=== PATIENT | male | born 1945 | race Caucasian/White ===

== ENCOUNTER 2023-10-04 07:08 | Outpatient (CLI) | payer MEDICARE, OTHER, SELFPAY ==
--- NOTE | 2023-10-04 08:36 | P.ANES_ITS ---
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
--- NOTE | 2023-10-04 09:03 | W.ANESCHARGE ---
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
== END 2023-10-04 07:09 | disposition home or self-care (01) ==
LOC: OP CLINIC 07:10
PROVIDERS: PCP Family Medicine; Visit Provider Internal Medicine Gastroenterology
DX: Z12.11 Encounter for screening for malignant neoplasm of colon (principal); K63.5 Polyp of colon; K57.30 Diverticulosis of large intestine without perforation or abscess without bleeding
CPT/HCPCS: 00811; 45385; 88305; 99100; J2704; J3490

== ENCOUNTER 2024-01-20 17:21 | Emergency (ER) | payer MEDICARE, OTHER, SELFPAY ==
--- NOTE | 2024-01-20 17:29 | ED_ITS ---
HPI - General Adult General Date Seen: 01/20/24 Chief complaint: Weakness Stated complaint: Cough, temp, chills, vomit, tired Time Seen by Provider: 01/20/24 17:25 History of Present Illness HPI narrative: Very pleasant 79-year-old gentleman presenting to the ER today with his . He has a past medical history aortic stenosis, type 2 diabetes, hypothyroidism, hyperlipidemia, history of oropharyngeal cancer, colon polyps. He normally receives primary care through the [facility] system. He had lab workup at [facility] about 2 weeks ago. On 01/04 labs showed: Sodium 146, potassium 4.1, chloride 110, bicarb 25, glucose 147, BUN 22, creatinine 1.1 WBC 5.7, hemoglobin 12.6, platelet 188 ALT 12, AST 21, bilirubin 0.6, alk-phos 90, total protein 6.7 Hemoglobin A1c 6.1 TSH was low at 0.21. Free T4 was normal at 1.6 He is generally fairly active tracy. 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 He enjoys golfing and shooting. He has been traveling lately and actually spent 4 days at a dog show last weekend ( 10 days ago). He has been sick for the past 3 or 4 days. He has noted much increased fatigue, poor energy. He has had a bit of a for appetite. He had a couple of episodes of nonbilious nonbloody a missing with 1 happening 2 days ago on Wednesday, and 1 yesterday. Also some loose stools and diarrhea yesterday evening (but formed stools yesterday morning). No bloody or mucousy diarrhea. He has had a temperature up to 100.7 at home and felt chilled. He is not febrile here in triage in the ER. He has also had a cough productive of some yellow sputum. No shortness of breath. No chest pain. Related Data Previous Rx's ?Medication ?Instructions ?Recorded benzonatate 100 mg capsule 100 mg PO TID PRN cough #10 caps 01/20/24 doxycycline monohydrate 100 mg 100 mg PO BID #14 caps 01/20/24 capsule Allergies Allergy/AdvReac Type Severity Reaction Status Date / Time No Known Drug Allergies Allergy Verified 10/04/23 07:30 PFSH PFS Social History Smoking Status: Never smoker Do you use any of these nicotine containing products: None How often do you have a drink containing alcohol: never How often do you have six or more drinks on one occasion: Never AUDIT-C Alcohol total score: 0 Non-prescribed substance use: denies use service: No Exam Narrative: Exam Narrative: Constitutional: Appears well-developed and well-nourished. Alert. Conversant. Non toxic. HENT: Head: Atraumatic. Nose: Nose normal. Mouth/Throat: Oral mucosa is clear and moist. no trismus. Pharynx normal. Tonsils symmetric. No tonsillar enlargement, erythema, or exudate. Eyes: Conjunctivae normal. EOM normal. Pupils equal, round, and reactive to light. No scleral icterus. Neck: Normal range of motion. Neck supple. No tracheal deviation present. Cardiovascular: Normal rate, regular rhythm. No gallop. No friction rub. No murmur heard. Symmetric radial artery pulses Pulmonary/Chest: Occasional wet sounding but nonproductive cough. Effort normal. No stridor. No respiratory distress. No wheezes. Left> right basilar rhonchi . No tenderness. Abdominal: Soft. Bowel sounds normal. No distension. No mass. No tenderness. No rebound. No guarding. No CVA tenderness. Musculoskeletal: RUE: Normal range of motion. No tenderness. No deformity LUE: Normal range of motion. No tenderness. No deformity RLE: Normal range of motion. No edema. No tenderness. No deformity LLE: Normal range of motion. No edema. No tenderness. No deformity Neurological: Alert and oriented to person, place, and time. Normal strength. CN II-VII intact. No sensory deficit. GCS eye subscore is 4. GCS verbal subscore is 5. GCS motor subscore is 6. Normal coordination Skin: Skin is warm and dry. No rash noted. No pallor. Normal capillary refill. Psychiatric: Normal mood. Normal affect. Const: Vital Signs, click to edit/add: Vital Signs - 24 hr 01/20/24 17:30 Temperature 98.4 F Pulse Rate [Pulse Oximeter] 87 Respiratory Rate 18 Blood Pressure [Ri ght Upper Arm] 158/95 H Pulse Oximetry 95 Oxygen Delivery Me thod Room Air Course Vital Signs Vital signs: Initial Vital Signs Temperature 98.4 F 01/20/24 17:30 Temperature Source Temporal Artery Scan 01/20/24 17:30 Pulse Rate 87 01/20/24 17:30 Pulse Rhythm Regular 01/20/24 17:30 Respiratory Rate 18 01/20/24 17:30 Blood Pressure 158/95 H 01/20/24 17:30 Blood Pressure Mean 116 H 01/20/24 17:30 Blood Pressure Position Sitting 01/20/24 17:30 Pulse Oximetry 95 01/20/24 17:30 Oxygen Delivery Method Room Air 01/20/24 17:30 Vital Signs Temperature 98.4 F 01/20/24 17:30 Pulse Rate 87 01/20/24 17:30 Respiratory Rate 18 01/20/24 17:30 Blood Pressure 158/95 H 01/20/24 17:30 Pulse Oximetry 95 01/20/24 17:30 Oxygen Delivery Method Room Air 01/20/24 17:30 Temperature 98.4 F 01/20/24 17:30 Pulse Rate 87 01/20/24 17:30 Respiratory Rate 18 01/20/24 17:30 Blood Pressure 158/95 H 01/20/24 17:30 Pulse Oximetry 95 01/20/24 17:30 Oxygen Delivery Method Room Air 01/20/24 17:30 Medications Administered Medications: Discontinued Medications Generic Name Dose Route Start Last Admin Trade Name Freq PRN Reason Stop Dose Admin Sodium Chloride 1,000 mls @ 1,000 mls/hr 01/20/24 18:00 01/20/24 19:00 0.9 % Sodium Chloride 1000 Ml IV 01/20/24 18:59 Infused .Q1H ALFONZO Infusion Medical Decision Making MDM Narrative Medical decision making narrative: This patient presents for evaluation of fatigue, productive cough, fever and chills, low energy level as well as some diarrhea and vomiting. Symptoms ongoing for the past 3 or 4 days at home. Differential is broad. Consider possible routine upper respiratory infection. PCR is negative for coronavirus, influenza, RSV. Patient does have rales in the left lung base more so than in the right lung base and we did obtain chest x-ray which does show a left lower lobe pneumonia there. I suspect this is a community-acquired pneumonia. Will start the patient on doxycycline to treat this. Urinalysis negative for infection. No signs of sepsis, cellulitis, abscess or other cause for fever. No abdominal pain to suggest cholecystitis, appendicitis, colitis, diverticulitis. Would hold off on CT for now. Patient is hemodynamically stable with a normal oxygen saturation and normal pulse rate. Blood pressure slightly hypertensive. Laboratory workup shows mild leukocytosis with a white count of 11.5. BUN slightly elevated at 33. CURB-65 score is 2 . This's put him in a moderate risk category. First dose of doxycycline administered here in the ER. [facility] for 100 mg b.i.d. for 7 days. Also Tessalon for cough. He has had some vomiting and diarrhea the past couple of days but not today. He is mildly dehydrated clinically and does have an elevated BUN consistent with dehydration. IV fluids administered here in the ER.. Close followup with primary care physician is indicated. Return to ED for any worsening especially higher fever, weakness, development of trouble breathing or chest pain, worsening vomiting, confusion, or other worsening. Lab Data Labs: Lab Results 01/20/24 01/20/24 01/20/24 Range/Units 17:38 17:50 18:00 WBC 11.53 H (4.50-11.00) K/uL RBC 4.37 (4.30-5.90) m/uL Hgb 12.4 L (13.5-17.5) gm/dL Hct 38.2 (37.0-53.0) % MCV 87 (80-100) fL MCH 28 (26-34) pg MCHC 33 (32-36) gm/dL RDW Coeff of Neptali 13.9 (11.5-15.5) % Plt Count 190 (140-440) K/uL Neut % (Auto) 82.1 H (42.0-72.0) % Lymph % (Auto) 7.3 L (20-44) % [place] % (Auto) 9.5 (0.0-11.0) % Eos % (Auto) 0.6 (0.0-7.0) % Baso % (Auto) 0.2 (0.0-3.0) % Neut # (Auto) 9.50 H (1.7-7.0) K/uL Lymph # (Auto) 0.80 L (0.90-2.90) K/uL [place] # (Auto) 1.10 H (0.00-0.90) K/UL Eos # (Auto) 0.10 (0.00-0.50) K/uL Baso # (Auto) 0.00 (0.00-0.30) K/uL Abs Immat Gran (auto) 0.00 (0.00-0.30) K/uL Imm/Tot Granulo (auto) 0.3 % Sodium 138 (135-149) mmol/L Potassium 3.9 (3.6-5.1) mmol/L Chloride 106 (96-114) mmol/L Carbon Dioxide 22 (20-32) mmol/L Anion Gap 10 (7-15) mEq/L BUN 33 H (7-30) mg/dL Creatinine 1.2 (0.5-1.5) mg/dL Estimated Creat Clear 49.10 Estimated GFR 61 ml/min Glucose 99 (60-115) mg/dL Lactate 0.8 (0.5-1.9) mmol/L Calcium 9.3 (8.4-10.6) mg/dL Urine Color Yellow (Yellow) Urine Appearance Clear (Clear) Urine pH 5.5 (5.0-8.5) Ur Specific [place] 1.025 (1.000-1.030) Urine Protein 1+ A (Negative) Urine Glucose (UA) Negative (Negative) Urine Ketones 1+ A (Negative) Urine Blood Trace-lysed A (Negative) Urine Nitrite Negative (Negative) Urine Bilirubin Negative (Negative) Urine Urobilinogen 0.2 (0.2-1.0) Ur Leukocyte Esterase Negative (Negative) Urine RBC 0-2 (0-2) Urine WBC 0-2 (0-5) Ur Squamous Epith Cells Few (None-Few) Urine Bacteria None (None) SARS-CoV-2 (PCR) Negative SARS-CoV-2 (Negative) Influenza Type A (PCR) Negative PCR FLU A (Negative) Influenza Type B (PCR) Negative PCR FLU B (Negative) Imaging Data Chest x-ray: Attestation: I have reviewed the pertinent imaging results. My impression: Retrocardiac infiltrate visible, with a spine sign lateral view. Probably corresponding to a subtle left lower lobe infiltrate hard to see on the AP view Radiologist's impression: IMPRESSION: Airspace opacity in the posterior left lung base suspicious for pneumonia. Discharge Plan Discharge Clinical Impression: Pneumonia, Dehydration Patient Disposition: Home, Self-Care Condition: Stable Instructions: Community Acquired Pneumonia (DC) Additional Instructions: As we discussed, please try to rest for the next few days. Drink plenty of fluids and stay hydrated. You can use Tylenol or ibuprofen if needed for fever. Take the antibiotics twice daily with food. If you have any worsening symptoms or any problems, come back to the ER right away. If you are not completely improved within 72 hours, please recheck with your doctor. Prescriptions: New doxycycline monohydrate 100 mg capsule 100 mg PO BID Qty: 14 0RF benzonatate 100 mg capsule 100 mg PO TID PRN (Reason: cough) Qty: 10 0RF Follow Up/Referrals: Raul Mendoza MD [Primary Care Provider] - Stand Alone Forms: [employer] Info Instructions
[2024-01-20 17:30] VITALS: BP 158/95; PULSE 87; RESP 18; TEMP 36.9; O2SAT 95; BMI 23.6
--- NOTE | 2024-01-20 17:50 | CRLHL7_ITS ---
For Patients: As a result of the Century Cures Act, medical imaging exams and procedure reports are released immediately into your electronic medical record. You may view this report before your referring provider. If you have questions, please contact your health care provider. INDICATION: Cough, fever, left greater than right basilar rales. TECHNIQUE: Chest 2 view. COMPARISON: Chest radiograph 10/02/2021. FINDINGS: Low lung volumes with bibasilar atelectasis. Airspace opacity in the posterior left lung base suspicious for pneumonia. No pleural effusion or pneumothorax. Stable 5 mm nodular density in the left lower lung which may represent a calcified granuloma. Normal heart size and pulmonary vascularity. Degenerative changes of the spine. IMPRESSION: Airspace opacity in the posterior left lung base suspicious for pneumonia. Dictated by Susan Longo MD @ 01/20/2024 6:13:07 PM (Electronically Signed)
[2024-01-20] MEDS: 0.9 % SODIUM CHLORIDE 1000 ml 1,000 ML IV (18:04)
[2024-01-20 18:05] LABS: Lactate* 0.8 mmol/L (0.5-1.9)
[2024-01-20 18:06] LABS: Basophils Percent Auto 0.2 % (0.0-3.0); Eosinophils Percent Auto 0.6 % (0.0-7.0); Hematocrit 38.2 % (37.0-53.0); Hemoglobin* 12.4 gm/dL (13.5-17.5); Immature Granulocytes Pct Auto 0.3 %; Lymphocytes Percent Auto 7.3 % (20-44); Mean Corpuscular HGB Conc 33 gm/dL (32-36); Mean Corpuscular Hemoglobin 28 pg (26-34); Mean Corpuscular Volume 87 fL (80-100); Monocytes Percent Auto 9.5 % (0.0-11.0); Neutrophils Percent Auto 82.1 % (42.0-72.0); Platelet Count* 190 K/uL (140-440); RDW Coefficient of Variation % 13.9 % (11.5-15.5); Red Blood Count 4.37 m/uL (4.30-5.90); White Blood Count* 11.53 K/uL (4.50-11.00)
[2024-01-20 18:07] LABS: Slide Review Reflex No
[2024-01-20 18:23] LABS: Chloride* 106 mmol/L (96-114); Potassium* 3.9 mmol/L (3.6-5.1); Sodium* 138 mmol/L (135-149)
[2024-01-20 18:25] LABS: Creatinine* 1.2 mg/dL (0.5-1.5); Estimated Glomerular Filt Rate 61 ml/min
[2024-01-20 18:26] LABS: Anion Gap 10 mEq/L (7-15); Blood Urea Nitrogen* 33 mg/dL (7-30); Calcium* 9.3 mg/dL (8.4-10.6); Carbon Dioxide* 22 mmol/L (20-32); Glucose* 99 mg/dL (60-115)
[2024-01-20 18:32] LABS: Appearance Urine Clear (Clear); Bilirubin Urine Negative (Negative); Blood Urine Trace-lysed (Negative); Color Urine Yellow (Yellow); Glucose Urine Negative (Negative); Ketones Urine 1+ (Negative); Leukocyte Esterase Urine Negative (Negative); Nitrite Urine Negative (Negative); Protein Urine 1+ (Negative); Specific Gravity Urine 1.025 (1.000-1.030); Urobilinogen Urine 0.2 (0.2-1.0); pH Urine 5.5 (5.0-8.5)
[2024-01-20 18:46] LABS: PCR FLU A Negative PCR FLU A (Negative); PCR FLU B Negative PCR FLU B (Negative); SARS PCR* Negative SARS-CoV-2 (Negative)
[2024-01-20 18:55] LABS: RBC Urine 0-2 (0-2); Squamous Epithelial Cell Urine Few (None-Few); WBC Urine 0-2 (0-5)
[2024-01-20] MEDS: DOXYCYCLINE HYCLATE 100 MG PO (19:14)
== END 2024-01-20 19:18 | disposition home or self-care (01) ==
PROVIDERS: Emergency Provider Emergency Medicine; PCP Family Medicine
DX: J18.9 Pneumonia, unspecified organism (principal); E86.0 Dehydration
CPT/HCPCS: 36415; 71046; 80048; 81001; 83605; 85025; 87631; 99283; 99284; A9270; J7030

== ENCOUNTER 2024-11-28 20:01 | Emergency (ER) | payer MEDICARE, OTHER, SELFPAY ==
--- OUTSIDE RECORDS SUMMARY | 2024-11-28 20:03 | XMS_ITS | Clinical Summary ---
Author Organization [facility] Address [address] [place] [id number] Care Team Providers Care Turf Keeper Name Role Phone Raul Mendoza MD Primary Care Provider [phone] Raffaele Regan Unavailable Unavailab Eloy Castro MD Unavailable [phone] Jordan Rodriguez MD Unavailable [phone] Carly Metzger RN Unavailable Unavailabl e Allergies No known active allergies Medications lutein 20 mg tabletIndications:F amily history of macular degeneration Take 1 tablet by mouth once daily. 0 8 Active acetaminophen (TylenoL) 325 mg cap Take by mouth one time if needed. 0 2 Active atorvastatin (LIPITOR) 80 mg tabletIndications:O ther hyperlipidemia Take 1 Tablet (80 mg) by mouth once daily. 90 Tablet 3 4 Active pantoprazole (PROTONIX) 20 mg tabletIndications:A bdominal pain, epigastric,Chronic GERD Take 1 Tablet (20 mg) by mouth once daily before a meal. Wait until they call for this. 90 Tablet 3 4 Active levothyroxine (SYNTHROID) 112 mcg tabletIndications:A cquired hypothyroidism Take 1 Tablet (112 mcg) by mouth before breakfast. 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 Recommend repeat imaging in 3 years. 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, face and neck 12/09/2022 Radiation-induced polyneuropathy 12/09/2022 Left ventricular failure, unspecified 12/09/2022 Oropharynx cancer 08/26/2021 Cancer Staging:Clinical:Stage II(cT3, cN1, cM0, p16+) - Signed by Nighat Kwok MD on 08/26/2021 Overview (10/09/2021): Poorly differentiated squamous cell carcinoma, p16 positive Uncontrolled type 2 diabetes mellitus with complication, with long-term current use of insulin 04/15/2020 Other hyperlipidemia 07/02/2017 Acquired hypothyroidism 10/23/2015 Acute medial meniscus tear of right knee 013 Articular cartilage disorder right knee 03/09/20 13 Screen for colon cancer 11/28/2008 Overview (11/28/2008): Colonoscopy 11/2008 normal repeat in 10 years Type II or unspecified type diabetes mellitus without mention of complication, not stated as uncontrolled 09/13/2007 Resolved Problems Problem Noted Date Diagnosed Date Resolved Date 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 08/26/2021 Cancer Staging:Clinical:Stage NEGRITA(cT3, cN2, cM0) - Signed by Nighat Kwok MD on 08/26/2021 Pathologic: Unsigned Hyperlipidemia 10/23/2015 07/02/2017 Encounters Date Type Department Care Team Description 11/27/2024 2:15 PM CDT Office Visit [address] [address] Deni Cornejo MD Follow Up 11/27/2024 Travel 09/07/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 Office Visit [facility] [address] [place] [address] Votel, Tarik Jackson MD Concerns (Chest congestion, x 2 days, made him come in, feels fine) 09/06/2024 Travel from Last 3 Months Immunizations Immunization Administration Dates Next Due COVID-19 VACCINE SPIKEVAX (M ODERNA 50MCG/0.5ML) 12YO+ PFS 06/28/2024,06/23/2023 COVID-19 vaccine (Pfizer-Bio NTech 30mcg/0.3mL) PF, MDV 06/26/2021 Influenza, High-dose Inactivated 024,07/14/2019,07/28/2018,2016,05/25/2016,05/01/2015 Influenza, High-dose Quadriv alent Inactivated 05/25/2022,06/18/2021,05/27/2020 Influenza, Inactivated AIIV4 (Age 65+ Years) Preserv Free 06/23/2023 Pneumococcal Poly,23-Valent (Pneumovax) 07/28/2018 Pneumococcal conj 13-Valent (Prevnar 13) 10/23/2016 Tdap 10/23/2016,11/13/2005 Zoster (Shingrix-RZV, recombinant) 02/28/2019,,10/21/2018 Family History Medical History Relation Name Comments Diabetes type II Brother 1 Lee Esophageal cancer Brother 2 Norm Cancer-prostate Father Diabetes Father Heart Disease Father valve replacem ent; of complications of this at 79 Hypertension Mother Other Mother of old age at 99. Tremor Sister Ivette Relation Name Status Comments Brother 1 Lee Alive Brother 2 Norm Alive Father Mother Sister Ivette Alive Son 1 Alive Son 2 Alive Son 3 Alive Son 4 Alive Social History Tobacco Use Types Packs/Day Years Used Date Smoking Tobacco: Former Cigarettes Q uit: 08/31/1987 Smokeless Tobacco: Former Chew Quit: 06/30/2017 Tobacco Cessation:Counseling Given: Yes Comments:smoked years ago (approximately 15 pack year hx) Alcohol Use Standard Drinks/Week Comments Yes 5 (1 standard drink = 0.6 oz pur e alcohol) 5/week; usually whiskey PHQ-2 Answer Date Recorded PHQ-2 TOTAL SCORE 0 06/28/2024 Social Connections Answer Date Recorded Do you often feel lonely or isolated from those around you? 0 06/28/2024 Alcohol Use Answer Date Recorded How often do you have a drink containing alcohol ? 4 06/28/2024 How many drinks containing a lcohol do you have on a typical day when you are drinking? 0 06/28/2024 How often do you have five or more drinks on one occasion? 0 06/28/2024 Financial Resource Strain Answer Date R ecorded Difficulty of Paying Living Expenses 3 06/28/2024 Difficulty of Paying Living Expenses Not on file 06/28/2024 Food Insecurity Answer Date Recorded Do you worry your food will run out before you are able to buy more? 1 06/28/2024 Transportation Needs Answer Date Record ed Does lack of transportation keep you from medica l appointments? 1 06/28/2024 Does lack of transportation keep you from work, meetings or getting things that you need? 1 06/28/2024 Housing Stability Answer Date Recorded What is your housing situation today? 1 06/28/2024 Utilities Answer Date Recorded Do you have trouble paying f or utilities (for example, heat, electricity, water, phone)? 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 MECHANIC Pulse 72 09/07/2024 9:39 AM BICYCLE MECHANIC Temperature 36.4 C (97.5 F) 09/07/2024 9:39 AM BICYCLE MECHANIC Respiratory Rate 12 11/27/2024 2:29 PM CDT Oxygen Saturation 97% 09/07/2024 9:39 AM BICYCLE MECHANIC Inhaled Oxygen Concentration - - Weight 75.9 kg (167 lb 4.8 oz) 09/07/2024 9:39 A M BICYCLE MECHANIC Height 170.2 cm (5' 7) 09/07/2024 9:39 AM BICYCLE MECHANIC Body Mass Index 26.2 09/07/2024 9:39 AM BICYCLE MECHANIC Plan of Treatment Upcoming Encounters Date Type Department Care Team (Late st Contact Info) Description 01/03/2025 9:45 AM CDT Orders Only [facility] [address] [place] [address] Tayo York 01/10/2025 1:10 PM CDT Office Visit [facility] [address] [place] [address] Raul Mendoza MD [address] [place] [address] Health Maintenance Due Date Last Done Comments RSV vaccine for adults or (1 - 1-dose 75+ series) 2018 COVID-19 vaccine series (7 - Pfizer risk season) 2024 06/28/2024, 06/23/2023, 07/07/2022, Additional history exists Depression screening for age 12+ 06/28/2025 06/28/2024, 07/01/2023, 06/25/2023, Additional history exists Medicare Wellness for age 65+ 06/29/2025, 06/23/2023, 07/11/2021, Additional history exists BMI (ht and wt on same day) for age 18+ 09/07/2025 09/07/2024, 06/28/2024, 01/24/2024, Additional history exists Tetanus booster 10/23/2026 10/23/2016, 11/13/2005 Tdap Completed 10/23/2016, 11/13/2005 Pneumococcal series for age 50+ Completed 9, 10/23/2016 Zoster (shingles) series for age 50+ Completed 02/28/2019, 11/10/2018, 10/21/2018 Influenza Vaccine Completed 05/26/2024, , 07/14/2019, Additional history exists Insurance [employer] MEDICARE SUPPLEMENT PLAN MEDICARE PB ONLY MEDICARE PART A HB ONLY MEDICARE PART B HB ONLY Advance Directives * Full Code (Latest Code Status on File) Date Activated Date Inactivated Comments 10/25/2023 1:37 PM 10/25/2023 5:05 PM Question Answer Comments Code Status Discussion: Reviewed Preferences * Full Code Date Activated Date Inactivated Comments 10/25/2023 11:22 AM 10/25/2023 1:37 PM Question Answer Comments Code Status Discussion: Unable to Assess Preferences, Provider to review later Care Teams Turf Keeper Relationship Specialty Start Date End Date Raul Mendoza MD [address] [place] [address] PCP - General 07/15/24 Raffaele Regan [address] [place] [address] General Surgery Surgery - General 04/27/12 Eloy Carroll MD [address] [place] [address] Sports Medicine 04/27/12 Jordan Rodriguez MD [address] [facility] [address] Orthopedics Surgery - Orthopedic 04/05/13 Carly Metzger RN [address] [place] [address] Nurse Navigator - Oncology Registered Nurse 07/30/21
--- OUTSIDE RECORDS SUMMARY | 2024-11-28 20:03 | XMS_ITS | Encounter Summary ---
Author Organization [facility] Address [address] [place] [id number] Care Team Providers Care Bank Advisor Name Role Phone Unavailable Primary Care Provider Unavailabl e Reason for Referral * Outpatient (Routine) - Authorized Specialty Diagnoses / Procedures Referred By Gulshan becerra Referred To Contact Radiation Oncology Jackie Holly M.D. [address] [place] [address] Phone: tel: fax: [facility] Referral ID Status Reason Start Date Expiration Date V isits Requested Visits Authorized [id number] Authorized 11/22/2024 05/24/2026 1 1 * Outpatient (Routine) - Closed Specialty Diagnoses / Procedures Referred By Gulshan becerra Referred To Contact Radiation Oncology Janett Patel APRN, C.N.P., D.N.PStefani [address] [place] [phone] Phone: tel: fax: Jackie Holly M.D. [address] [place] [phone] Phone: tel: fax: Referral ID Status Reason Start Date Expiration Date Visits Re quested Visits Authorized [id number] Closed 05/19/2024 11/18/2025 1 1 Scheduling Instructions After visit with Chantal Reason for Visit * Outpatient (Routine) - Closed Specialty Diagnoses / Procedures Referred By Gulshan becerra Referred To Contact Radiation Oncology Janett Patel APRN C.N.PStefani, D.N.P. [address] [place] [phone] Phone: tel: fax: Jackie Holly M.D. [address] [place] [phone] Phone: tel: fax: Referral ID Status Reason Start Date Expiration Date Visits Re quested Visits Authorized [id number] Closed 05/19/2024 11/18/2025 1 1 Encounter Details Date Type Department Care Team (Latest Contact Info) Description 11/22/2024 2:16 PM CDT - 11/22/2024 2:56 PM CDT Hospital Encounter Department of Radiation Oncology in [place], [place] [address] [place] [phone] Jackie Holly M.D. [address] [place] [phone] Malignant Neoplasm Of Tongue Base (HCC) (Primary Dx) Social History Tobacco Use Types Packs/Day Years Used Date Smoking Tobacco: Former Cigarettes Q uit: 08/31/1987 Smokeless Tobacco: Former Chew Quit: 06/30/2017 Comments:Approximately 15 pa ck/year history. 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 07/07/2022 acetaminophen-co deine (TYLENOL #3) 300-30 mg per tabletIndication s:Prolonged Acute Pain/Traumatic Injury Take 1 tablet by mouth every 6 (six) hours as needed for pain Indications: Prolonged Acute Pain/Traumatic Injury. 20 tablet 08/18/2021 aspirin 81 mg capsule Take 81 mg by mouth daily as needed (Holds if working out due to taking Tylenol.). 03/19/2022 diphenhydramine- lidocaine-antaci d (MAGIC MOUTHWASH) 1:1:1 Apply 15 mL to the mouth or throat every 4 (four) hours as needed for mucositis. 480 mL 09/23/2021 glucos sul [id number]-[id number]-C -Mn (Glucosamine Chondroitin) 550-30-1 mg capsule Take 1 capsule by mouth daily. 12/09/2022 HYDROcodone-acet aminophen (NORCO) 5-325 mg per tablet Take 1 tablet by mouth every 6 (six) hours as needed for severe pain or score 7-10 of 10. 07/16/2023 levothyroxine (SYNTHROID, LEVOTHROID) 125 mcg tablet Take 125 mcg by mouth every morning before breakfast. 06/23/2023 lutein 20 mg tablet Take 1 tablet by mouth daily. 04/08/2018 magnesium oxide 500 mg tablet tablet Take 500 mg by mouth daily as needed (Seldom.). 12/31/2022 oxyCODONE (ROXICODONE) 5 mg immediate release tabletIndication s:Acute Pain Exception Take 1 tablet (5 mg total) by mouth every 4 (four) hours as needed for moderate pain or score 4-6 of 10 or severe pain or score 7-10 of 10 Indication: Acute Pain Exception. 20 tablet 09/29/2021 pantoprazole (PROTONIX) 20 mg EC tablet Take 20 mg by mouth every morning before breakfast. 06/23/2023 pentoxifylline (TRENtal) 400 mg ER tablet Take 400 mg by mouth 3 (three) times a day with meals. 08/09/2021 polyethylene glycol-electroly anna (GoLYTELY) 236-22.74-6.74 -5.86 gram solution Take 4,000 mL by mouth once. 09/27/2023 documented as of this encounter Progress Notes * Jackie Holly M.D. - 11/22/2024 2:30 PM CDT RADIATION ONCOLOGY PHONE FOLLOW-UP NOTE SUBJECTIVE REFERRAL SOURCE Established patient DIAGNOSIS 1. 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 in [facility] to the patient in Patient's Home CHIEF COMPLAINT/REASON FOR VISIT Mr. Vick Pisano is a 79 y.o. 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 He returns for a focused follow-up phone visit. Oncology History Malignant Neoplasm Of Tongue Base (HCC) 06/26/2021 Initial Diagnosis Patient presented to primary care provider with a 2-month history of sore throat and right-sided neck lump with associated unintentional 10 lb weight loss over the past year. 06/26/[address] neck showed a 3.1 x 2.0 cm bulky centrally necrotic mass arising from the right base of tongue with extension into the superior oropharyngeal space. There was moderate bulky prominence of the residual lingual tonsil. Pathologically enlarged right cervical 2 lymph node measured up to 2.2 cm. Additional necrotic lymph node at the right 3 cervical chain measured 1.1 cm. 07/11/2021 Critical Imaging PET/CT demonstrated a 2.4 x 2.2 cm mass in the right tongue base/tonsillar region with increased FDG activity, SUV max 12.5. Larger adjacent enlarged and FDG avid right neck lymph node measuring 4.0 x 3.7 cm, SUV max 11.2. No definitive evidence of distant metastatic disease. 07/17/2021 Biopsy/Pathology Laryngoscopy demonstrated a large, firm mass that appeared to be eminating from the right base of tongue and filled much of the oropharynx. It did appear to extend into the tonsillar fossa. It did not cross midline. It did not involve the epiglottis. Biopsy, right base of tongue: poorly differentiated squamous cell carcinoma, p16 positive. 08/05/2021 Other Medical Oncology consultation with Dr. Nighat Kwok who recommended concurrent chemoradiotherapy. She planned on treatment with weekly paclitaxel with carboplatin for the duration of radiation treatment. The patient will need dental clearance. Consult with speech therapy and swallow study ordered. 08/11/2021 Other ENT consultation with Dr. Basia Lopez and Janett Fucsh CNP who reviewed that the patient has a likely T3/T4 N1 p16 positive squamous cell carcinoma of the right base of tongue. Surgical options were discussed. Primary chemoradiation might be a better option for him for voice and tongue preservation. However, the right level 3 lymph node has increased in size and if this is bulky disease that would strengthen the argument for surgical intervention followed by chemoradiation. 08/18/2021 - 10/03/2021 Radiation Therapy Radiation Therapy Treatment Details (08/18/2021 - 10/03/2021) Site: Right Oropharynx - Base of tongue Technique: IMRT Goal: Curative Planned Treatment Start Date: 08/18/2021 Radiation therapy to the right and left neck completed in 35 fractions to a dose of 7000 cGy. 12/26/2021 Critical Imaging Three month post-treatment PET/CT demonstrated resolution of FDG avid base of tongue mass and rightcervical lymphadenopathy. No residual abnormal uptake with no evidence of locoregional or distant progression. 12/29/[address] Chest with IV contrast no evidence of metastatic disease in the chest CT Neck Soft tissue with IV contrast demonstrated resolution of the mass within the right oropharyngeal mucosa and adenopathy at levels 1 and 2 without any new adenopathy. Postradiation changes of mild asymmetry with soft tissue swelling and edema/inflammation. INTERVAL HISTORY: Since I last saw Mr. Vick Pisano he reports that he is doing well. His only complaint is mild dry mouth. He states that he is active. He has no head and neck complaints. Hedenies change in swallowing, lumps or masses, ear pain, change in weight. He is doing his dental fluoride and care. He sees Dr. Cornejo next week for his ENT visit/exam. OBJECTIVE There were no vitals taken for this phone visit. General: Mr. Vick Pisano sounded well on the phone. DIAGNOSTICS I have reviewed the available imaging, operative and pathology reports as described above and reviewed in the EMR. 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 He will have an exam next week to ensure no evidence of clinical recurrence. We will see him again for a phone visit in 1 year. I congratulated him on his 3 year from treatment anniversary. His questions were answered; he was comfortable with this plan. Mr. Vick Pisano knows to contact us at any point should any questions or concerns arise. EDUCATION: Ready to learn, no apparent learning barriers were identified; learning preferences include listening. Explained diagnosis and treatment plan; patient expressed understanding of the content. I personally spent 12 minutes in care of the patient today. Time includes both non face to face andface to face patient care. Signed by: Jackie Holly M.D. 11/22/2024 2:55 PM CDT Radiation Oncology [facility] [address] [place] [address] documented in this encounter Miscellaneous Notes * Addendum Note - Jackie Holly M.D. - 11/22/2024 2:30 PM CDTEncounter addended by: Jackie Holly M.D. on: 11/22/2024 3:17 PM Actions taken: Flowsheet macro applied, Flowsheet accepted documented in this encounter Plan of Treatment Scheduled Referrals Name Type Priority Associated Diagnoses Order Schedule Radiation Oncology office visit (clinic) Outpatient Referral Routine Once for 1 Occurrences starting 11/22/2024 until 11/22/2024 Radiation Oncology office visit (clinic) Outpatient Referral Routine Expected: (Approximate), Expires: 11/22/2025 documented as of this encounter Visit Diagnoses Diagnosis Malignant Neoplasm Of Tongue Base (HCC)- Primary documented in this encounter
--- OUTSIDE RECORDS SUMMARY | 2024-11-28 20:03 | XMS_ITS | Clinical Summary ---
Author Organization [facility] Address [address] [place] [address] Care Team Providers Care Line Haul Driver Name Role Phone Raul Mendoza MD Primary Care Provider [phone] Source Comments You are receiving this document as you are listed as the primary care provider,follow-up provider, or the patient has been referred to you for consultation.This is in compliance with the Medicare and[facility] EHR Incentive Program,which states Providers who transition their patient to another setting of careor provider of care or refers their patient to another provider of care shouldprovide summary care record for each transition of care or referral. [employer] [facility] Allergies No known active allergies Medications Glucosamine HCl-MSM (GLUCOSAMINE-MS M OR) Take by mouth. 04/14/2013 Active Meloxicam (AKA MOBIC) 15 MG tablet Take 15 mg by mouth daily (every 24 hours). 04/14/2013 Active aspirin EC 81 MG enteric coated tablet Take 81 mg by mouth daily (every 24 hours). 04/14/2013 Active lisinopril (AKA ZESTRIL) 10 MG tablet Take 10 mg by mouth daily (every 24 hours). 04/14/2013 Active atorvastatin (AKA LIPITOR) 10 MG tablet Take 10 mg by mouth daily (every 24 hours). 04/14/2013 Active levothyroxine (AKA SYNTHROID) 100 MCG tablet Take 100 mcg by mouth daily (every 24 hours). 04/14/2013 Active HYDROcodone-romulo taminophen (NORCO) 5-325 MG tablet Take 1-2 tablets by mouth every 4 hours as needed for Pain. 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 Overview (03/17/2017): Chondromalacia, right knee Social History Tobacco Use Types Packs/Day Years Used Date Smoking Tobacco: Former Cigarettes Smokeless Tobacco: Former Chew Alcohol Use Standard Drinks/Week Comments Yes 0 (1 standard drink = 0.6 oz pur e alcohol) 1 drink/day Sex and Gender Information Value Date Recorded Sex Assigned at Not on file Legal Sex Male 4:13 AM CDT Gender Identity Not on file Sexual Orientation Not on file Last Filed Vital Signs Vital Sign Reading Time Taken Comments Blood Pressure - - Pulse - - Temperature - - Respiratory Rate - - Oxygen Saturation - - Inhaled Oxygen Concentration - - Weight 73.3 kg (161 lb 9.6 oz) 10/08/2023 10:52 AM CDT Height 170.5 cm (5' 7.13) 10/08/2023 10:52 AM C DT Body Mass Index 25.21 10/08/2023 10:52 AM CDT Plan of Treatment Health Maintenance Due Date Last Done Comments Medicare Annual Wellness Visit 1945 RSV Vaccine (1 - 1-dose 75+ series) 2018 COVID-19 Vaccine ( season) 2024 06/23/2023, 07/07/2022, 06/26/2021, Additional history exists DTaP/Tdap/Td Vaccine (3 - Tdap) 10/23/2026 10/23/2016, 11/13/2005 Colonoscopy Discontinued 11/28/2008 Pneumococcal Vaccine 50+ Yrs Completed 07/28/2018, 10/23/2016 Zoster/Shingles Vaccine Completed 02/28/2019, 11/10 Influenza Vaccine Completed 05/26/2024, , 05/25/2022, Additional history exists HepA Vaccine Aged Out No longer eligi ble based on patient's age to complete this topic HepB Vaccine Aged Out No longer eligi ble based on patient's age to complete this topic Hib Vaccine Aged Out No longer eligi ble based on patient's age to complete this topic IPV (Polio) Vaccine Aged Out No longe r eligible based on patient's age to complete this topic MCV4 Vaccine Aged Out No longer eligi ble based on patient's age to complete this topic Meningococcal B Vaccine Aged Out No l onger eligible based on patient's age to complete this topic Insurance MEDICARE MEDICARE SUPPLEMENT Care Teams Line Haul Driver Relationship Specialty Start Date End Date Raul Mendoza MD [address] [place] [address] [facility] - General 04/11/13
--- OUTSIDE RECORDS SUMMARY | 2024-11-28 20:03 | XMS_ITS | Clinical Summary ---
Author Organization [facility] Address [address] [place] [address] Care Team Providers Care Lower School Spanish Teacher Name Role Phone Unavailable Primary Care Provider Unavailabl e Source Comments Patient records contain information from all sites at [facility]. For routine questions regarding patient records, call [phone] during business hours, M-F 8:00 AM - 5:00 PM Central Time. Record requests for emergency care only can be directed to [phone] at any time.[facility] Allergies No known active allergies Medications lutein 20 mg tablet Take 1 tablet by mouth daily. 8 Active pentoxifylline (TRENtal) 400 mg ER tablet Take 400 mg by mouth 3 (three) times a day with meals. 2 Active acetaminophen-c odeine (TYLENOL #3) 300-30 mg per tabletIndicatio ns:Prolonged Acute Pain/Traumatic Injury Take 1 tablet by mouth every 6 (six) hours as needed for pain Indications: Prolonged Acute Pain/Traumatic Injury. 20 tablet 2 Active Additional Information Patient not taking.Reported on 07/10/2022 diphenhydramine -lidocaine-anta niyah (MAGIC MOUTHWASH) 1:1:1 Apply 15 mL to the mouth or throat every 4 (four) hours as needed for mucositis. 480 mL 2 Active oxyCODONE (ROXICODONE) 5 mg immediate release tabletIndicatio ns:Acute Pain Exception Take 1 tablet (5 mg total) by mouth every 4 (four) hours as needed for moderate pain or score 4-6 of 10 or severe pain or score 7-10 of 10 Indication: Acute Pain Exception. 20 tablet 2 Active Additional Information Patient not taking.Reported on 12/31/2021 magnesium oxide 500 mg tablet tablet Take 500 mg by mouth daily as needed (Seldom.). 3 Active acetaminophen 325 mg capsule Take 325 mg by mouth daily as needed. 2 Active glucos sul 7HPa-dsr-dyiih- C-Mn (Glucosamine Chondroitin) 550-30-1 mg capsule Take 1 capsule by mouth daily. 3 Active HYDROcodone-romulo taminophen (NORCO) 5-325 mg per tablet Take 1 tablet by mouth every 6 (six) hours as needed for severe pain or score 7-10 of 10. 3 Active polyethylene glycol-electrol ytes (GoLYTELY) 236-22.74-6.74 -5.86 gram solution Take 4,000 mL by mouth once. 4 Active aspirin 81 mg capsule Take 81 mg by mouth daily as needed (Holds if working out due to taking Tylenol.). 2 Active levothyroxine (SYNTHROID, LEVOTHROID) 125 mcg tablet Take 125 mcg by mouth every morning before breakfast. 3 Active pantoprazole (PROTONIX) 20 mg EC tablet Take 20 mg by mouth every morning before breakfast. 3 Active Active Problems Problem Noted Date Diagnosed Date Malignant Neoplasm Of Tongue Base 07/17/2021 Cancer Staging:Clinical stage from 07/17/2021:Stage II(cT3, cN1, cM0, p16+) - Unsigned Difficult Intubation Personal History 06/02/2018 Encounters Date Type Department Care Team Description 11/22/2024 2:16 PM CDT - 11/22/2024 2:56 PM CDT Hospital Encounter Department of Radiation Oncology in [place], [place] [address] [place] [address] Jackie Holly M.D. Malignant Neoplasm Of Tongue Base (HCC) (Primary Dx) from Last 3 Months Family History Medical History Relation Name Comments Prostate cancer Father Relation Name Status Comments Father Social History Tobacco Use Types Packs/Day Years Used Date Smoking Tobacco: Former Cigarettes Q uit: 08/31/1987 Smokeless Tobacco: Former Chew Quit: 06/30/2017 Tobacco Cessation:Counseling Given: Not Answered Comments:Approximately 15 pack/year history. 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 Not on file Not on file Last Filed Vital Signs Vital Sign Reading Time Taken Comments Blood Pressure 139/69 01/28/2023 10:02 AM CDT Pulse 67 01/28/2023 10:02 AM CDT Temperature 36.1 C (96.9 F) 01/28/2023 10:02 AM CDT Respiratory Rate - - Oxygen Saturation - - Inhaled Oxygen Concentration - - Weight 71.8 kg (158 lb 4.6 oz) 01/28/2023 10:02 AM CDT Height 171 cm (5' 7.32) 08/28/2021 12:58 PM PLANTING MATERIAL UNLOADER Body Mass Index 24.55 08/28/2021 12:58 PM PLANTING MATERIAL UNLOADER Plan of Treatment Health Maintenance Due Date Last Done Comments RSV vaccine - (32-36 weeks) or 60+ years (1 - 1-dose 75+ series) 2018 Depression Screening (Annual PHQ-2) 07/26/2024 Fall Risk Screen (Annual) 07/26/2024 COVID-19 Vaccine (7 - Pfizer risk 2023- season) 2024 06/28/2024, 06/23/2023, 07/07/2022, Additional history exists Thyroid Stimulating Hormone (TSH) test for thyroid function 01/04/2025 01/05/2024, 06/25/2023, 06/16/2023, Additional history exists DTaP,Tdap,and Td Vaccines (3 - Td or Tdap) 10/23/2026 10/23/2016, 11/13/2005 Pneumococcal vaccine (50+ years) Completed 07/28/2018, 10/23/2016 Zoster Vaccines Completed 02/28/2019, 10/24, 10/21/2018 Glucose Test for Med Monitoring Discontinued 01/05/2024, 10/25/2023, 09/21/2023, Additional history exists Influenza Vaccine Completed 05/26/2024, , 05/25/2022, Additional history exists HPV Vaccines Aged Out No longer eligi ble based on patient's age to complete this topic IPV Vaccines Aged Out No longer eligi ble based on patient's age to complete this topic Insurance MEDICARE [facility] Advance Directives For more information, please contact: [phone] Documents on File Type Date Recorded Patient Media Monitor Expl anation Advance Directives 12/29/2010 12:00 AM [place] document. See document viewer.
--- OUTSIDE RECORDS SUMMARY | 2024-11-28 20:03 | XMS_ITS ---
Author Organization [facility] Address [address] [place] [address] Care Team Providers Care Bench Assembler Battery Name Role Phone Unavailable Primary Care Provider Unavailabl e Active Problems Problem Noted Date Diagnosed Date Malignant Neoplasm Of Tongue Base 07/17/2021 Cancer Staging:Clinical stage from 07/17/2021:Stage II(cT3, cN1, cM0, p16+) - Unsigned Difficult Intubation Personal History 06/02/2018 Current Treatment and Therapy Plans No current plan information found. Past Treatment and Therapy Plans No past plan information found. Past Radiation Episodes * IMRT: Right Oropharynx - Base of tongueOverview* First Treatment Date Last Treatment Date Treatment Site Technique Goal Episode Provider 08/18/2021 10/03/2021 Right Base of tongue IMRT Curative * Linked Problems Malignant Neoplasm Of Tongue Base Treatment Courses* Course 1x HN 08/18/2021 - 10/03/2021 Treatment Period Fraction Dose Fractions Total Dose Plans Planned [id number] 08/29/2021 - 10/03/2021 200 cGy 5 ,200 cGy F8_HN 08/27/2021 - 08/28/2021 200 cGy 5 ,600 cGy F3_HN 08/20/2021 - 08/26/2021 200 cGy 6 ,600 cGy F1_HN 08/18/2021 - 08/19/2021 200 cGy 7 ,000 cGy Reference Points Delivered [id number] 08/18/2021 - 10/03/2021 7,000 cGy
[2024-11-28 20:19] VITALS: BP 141/79; PULSE 80; RESP 20; TEMP 37.4; O2SAT 98; BMI 23.9
--- NOTE | 2024-11-28 20:28 | CRLHL7_ITS ---
For Patients: As a result of the Cures Act, medical imaging exams and procedure reports are released immediately into your electronic medical record. You may view this report before your referring provider. If you have questions, please contact your health care provider. INDICATION: Cough. TECHNIQUE: Chest 2 views. COMPARISON: October 02, 2021. FINDINGS: Cardiovascular and mediastinum: Cardiomediastinal silhouette is stable. Lungs and pleural spaces: Left lower lung zone calcified granuloma in the periphery. This is stable compared to prior. Lungs are clear. No sign of pleural effusion. No pneumothorax. Bones and soft tissues: No significant findings. IMPRESSION: No acute findings and no significant change from the prior exam. Dictated by Hazel Pritchett MD @ 11/28/2024 9:08:45 PM (Electronically Signed)
--- NOTE | 2024-11-28 20:28 | ED.GENADULT ---
HPI - General Adult General Chief complaint: Cough Stated complaint: Fever, cough for a month Time Seen by Provider: 11/28/24 20:24 History of Present Illness HPI narrative: This 79-year-old male comes in with his reporting cough for most of the past month or so. He states that it has worsened over the past couple days. He states that he gets coughing fits where it is difficult to stop. He has been using some [id number] medicines. He reports subjective fever but has not measured any temperature. He arrives here with normal vital signs. Related Data Home Medications ?Medication ?Instructions ?Recorded ?Confirmed atorvastatin 80 mg tablet 80 mg PO DAILY 11/28/24 11/28/24 levothyroxine 112 mcg tablet 112 mcg PO DAILY 11/28/24 11/28/24 levothyroxine 125 mcg tablet 125 mcg PO QAM 11/28/24 11/28/24 pantoprazole 20 mg tablet,delayed 20 mg PO DAILY 11/28/24 11/28/24 release pentoxifylline 400 mg 400 mg PO DAILY 11/28/24 11/28/24 tablet,extended release Allergies Allergy/AdvReac Type Severity Reaction Status Date / Time No Known Drug Allergies Allergy Verified 11/28/24 20:15 Review of Systems Status of ROS: Reports: 10 or more systems reviewed and unremarkable except as noted in History and below Narrative: Constitutional: No fevers, no weight gain or loss. Eyes: No discharge. No vision changes. HENT: No congestion, no sore throat, no ear pain. Cardiovascular: No chest pain, no palpitations. Respiratory: No shortness of breath, no wheezes. Frequent cough. Gastrointestinal: No abdominal pain, no vomiting, no diarrhea. Genitourinary: No dysuria, no hematuria. Musculoskeletal: Normal range of motion. Skin: No rashes, no pruritis. Neurological: No dizziness, weakness, sensory change, speech change. Endo/Heme/Allergies: No bruising or bleeding. No polydipsia. Pysch: no suicidality, no anxiety, no insomnia. All other systems reviewed and are negative. PFSH PFS Social History Smoking Status: Never smoker Do you use any of these nicotine containing products: None How often do you have a drink containing alcohol: never How often do you have six or more drinks on one occasion: Never AUDIT-C Alcohol total score: 0 Non-prescribed substance use: denies use service: No Exam Narrative: Exam Narrative: Constitutional: Well-developed, well-nourished, no acute distress. HEENT: Normocephalic, atraumatic. Neck: Normal range of motion. Nontender. Supple. Heart: Regular. No murmurs. Normal rate. Intact distal pulses. Lungs: Clear to auscultation. No chest discomfort. No wheezes, rhonchi, or rales. Abdomen: Normal bowel sounds. Nontender. No rebound tenderness. Genitalia: Deferred. Back: No midline tenderness. Normal range of motion. Extremities: Normal range of motion. No injury. Skin: Intact. No rash. Warm. No erythema or pallor. Neurologic: No altered sensation. No weakness. Alert and oriented. Psychiatric: No suicidality. No anxiety or depression. No insomnia. Nursing notes and vitals signs are reviewed. Const: Vital Signs, click to edit/add: Vital Signs - 24 hr 11/28/24 20:19 Temperature 99.4 F Pulse Rate [Pulse Oximeter] 80 Respiratory Rate 20 Blood Pressure [Ri ght Upper Arm] 141/79 H Pulse Oximetry 98 Oxygen Delivery Me thod Room Air Course Vital Signs Vital signs: Initial Vital Signs Temperature 99.4 F 11/28/24 20:19 Temperature Source Temporal Artery Scan 11/28/24 20:19 Pulse Rate 80 11/28/24 20:19 Respiratory Rate 20 11/28/24 20:19 Blood Pressure 141/79 H 11/28/24 20:19 Blood Pressure Mean 99 11/28/24 20:19 Pulse Oximetry 98 11/28/24 20:19 Oxygen Delivery Method Room Air 11/28/24 20:19 Vital Signs Temperature 99.4 F 11/28/24 20:19 Pulse Rate 80 11/28/24 20:19 Respiratory Rate 20 11/28/24 20:19 Blood Pressure 141/79 H 11/28/24 20:19 Pulse Oximetry 98 11/28/24 20:19 Oxygen Delivery Method Room Air 11/28/24 20:19 Temperature 99.4 F 11/28/24 20:19 Pulse Rate 80 11/28/24 20:19 Respiratory Rate 20 11/28/24 20:19 Blood Pressure 141/79 H 11/28/24 20:19 Pulse Oximetry 98 11/28/24 20:19 Oxygen Delivery Method Room Air 11/28/24 20:19 Medical Decision Making MDM Narrative Medical decision making narrative: This patient comes in reporting persistent cough over the past month but worsening more recently. Nasal swab returns negative for viruses tested. Chest x-ray is also obtained and shows no acute pulmonary disease. The patient has reassuring vital signs and is okay to be discharged home. I did provide [facility] prescription for some tablets of Tylenol 3 for cough suppressing benefit. Given the prolonged symptoms I did also prescribe Zithromax. There is a fair chance that this is some kind of viral infection which will after run its course. Lab Data Labs: Lab Results 11/28/24 Range/Units 20:15 SARS-CoV-2 (PCR) Negative SARS-CoV-2 (Negative) Influenza Type A (PCR) Negative PCR FLU A (Negative) Influenza Type B (PCR) Negative PCR FLU B (Negative) RSV (PCR) Negative PCR RSV (Negative) Discharge Plan Discharge Clinical Impression: Acute lower respiratory infection Patient Disposition: Home, Self-Care Condition: Stable Additional Instructions: Take medication as prescribed. Follow up with MD return if worsening. Prescriptions: No Action atorvastatin 80 mg tablet 80 mg PO DAILY pentoxifylline 400 mg tablet extended release 400 mg PO DAILY pantoprazole 20 mg tablet,delayed release (DR/EC) 20 mg PO DAILY levothyroxine 125 mcg tablet 125 mcg PO QAM levothyroxine 112 mcg tablet 112 mcg PO DAILY Follow Up/Referrals: Raul Mendoza MD [Primary Care Provider] - Stand Alone Forms: [facility] Info Instructions
--- OUTSIDE RECORDS SUMMARY | 2024-11-28 20:51 | XMS_ITS | Clinical Summary ---
Author Organization [facility] Address [address] [place] [address] Care Team Providers Care Perch Mender Name Role Phone Unavailable Primary Care Provider Unavailabl e Source Comments Patient records contain information from all sites at [facility]. For routine questions regarding patient records, call [phone] during business hours, M-F 8:00 AM - 5:00 PM Central Time. Record requests for emergency care only can be directed to [phone] at any time.[facility] Allergies No known active allergies Medications lutein [...] daily as needed. 2 Active glucos sul [id number]- C-Mn (Glucosamine Chondroitin) 550-30-1 mg capsule Take [...] Hospital Encounter Department of Radiation Oncology in [place], [place] [address] [place] [address] Jackie Holly M.D. 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 See document viewer.
--- OUTSIDE RECORDS SUMMARY | 2024-11-28 20:51 | XMS_ITS ---
Author Organization [facility] Address [address] [place] [address] Care Team Providers Care Portfolio Assistant Name Role Phone Unavailable Primary Care Provider [...] cGy 7 ,000 cGy Reference Points Delivered [id number] 08/18/2021 - 10/03/2021 7,000 cGy
--- OUTSIDE RECORDS SUMMARY | 2024-11-28 20:51 | XMS_ITS | Encounter Summary ---
Author Organization [facility] Address [address] [place] [address] Care Team Providers Care Corporate Associate Attorney Name Role Phone Unavailable Primary Care Provider Unavailabl e Reason for Referral * Outpatient (Routine) - Authorized Specialty Diagnoses / Procedures Referred By Gulshan becerra Referred To Contact Radiation Oncology Jackie Holly M.D. [address] [place] [address] Phone: tel: fax: [facility] Referral ID Status Reason Start Date Expiration Date V isits Requested Visits Authorized [id number] Authorized 11/22/2024 05/24/2026 1 1 * Outpatient (Routine) - Closed Specialty Diagnoses / Procedures Referred By Gulshan becerra Referred To Contact Radiation Oncology Janett Patel APRN, C.N.P., D.N.PStefani [address] [place] [phone] Phone: tel: fax: Jackie Holly M.D. [address] [place] [phone] Phone: tel: fax: Referral ID Status Reason Start Date Expiration Date Visits Re quested Visits Authorized [id number] Closed 05/19/2024 11/18/2025 1 1 Scheduling Instructions After visit with Chantal Reason for Visit * Outpatient (Routine) - Closed Specialty Diagnoses / Procedures Referred By Gulshan becerra Referred To Contact Radiation Oncology Janett Patel APRN C.N.PStefani, D.N.P. [address] [place] [phone] Phone: tel: fax: Jackie Holly M.D. [address] [place] [phone] Phone: tel: fax: Referral ID Status Reason Start Date Expiration Date Visits Re quested Visits Authorized [id number] Closed 05/19/2024 11/18/2025 1 1 Encounter Details Date Type Department Care Team (Latest Contact Info) Description 11/22/2024 2:16 PM CDT - 11/22/2024 2:56 PM CDT Hospital Encounter Department of Radiation Oncology in [place], [place] [address] [place] [phone] Jackie Holly M.D. 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 480 mL 09/23/2021 glucos sul 3UZv-jev-rzmtq-C -Mn (Glucosamine Chondroitin) 550-30-1 mg capsule Take [...] audio/video technology by Jackie Holly M.D. in [facility] to the patient in Patient's Home [...] consultation with Dr. Basia Lopez and Janett Fuchs CNP who reviewed that the patient has [...] 2:55 PM CDT Radiation Oncology [facility] [address] [place] [address] documented in this encounter Miscellaneous Notes * [...]
--- OUTSIDE RECORDS SUMMARY | 2024-11-28 20:51 | XMS_ITS | Clinical Summary ---
Author Organization [facility] Address [address] [place] [address] Care Team Providers Care Black Ash Worker Name Role Phone Raul Mendoza MD Primary Care Provider [phone] Raffaele Regan Unavailable Unavailab Eloy Castro MD Unavailable [phone] Jordan Rodriguez MD Unavailable [phone] Carly Metzger RN Unavailable Unavailabl e Allergies [...] cN1, cM0, p16+) - Signed by Nighat Kwko MD on 08/26/2021 Overview (10/09/2021): Poorly differentiated [...] Description 11/27/2024 2:15 PM CDT Office Visit [address] [address] Deni Cornejo MD Follow Up 11/27/2024 Travel 09/07/2024 9:35 AM [facility] Office Visit [facility] [address] [place] [address] Votel, Tarik Jackson MD Concerns [...] on file 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 [facility] Gender Identity Not on file Sexual Orientation Not on file 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 [employer] Not on file Not on file Not on file Obstetrics History Last Filed Vital Signs Vital Sign Reading Time Taken Comments Blood Pressure 149/73 09/07/2024 9:39 AM [facility] Pulse 72 09/07/2024 9:39 AM [facility] Temperature 36.4 C (97.5 F) 09/07/2024 9:39 AM [facility] Respiratory Rate 12 11/27/2024 2:29 PM CDT Oxygen Saturation 97% 09/07/2024 9:39 AM [facility] Inhaled Oxygen Concentration - - Weight 75.9 kg (167 lb 4.8 oz) 09/07/2024 9:39 A M [facility] Height 170.2 cm (5' 7) 09/07/2024 9:39 AM [facility] Body Mass Index 26.2 09/07/2024 9:39 AM [facility] Plan of Treatment Upcoming Encounters Date Type Department Care Team (Late st Contact Info) Description 01/03/2025 9:45 AM CDT Orders Only [facility] [address] [place] [address] Tayo York 01/10/2025 1:10 PM CDT Office Visit [facility] [address] [place] [address] Raul Mendoza MD [address] [place] [address] Health Maintenance Due Date Last Done Comments [...] Preferences, Provider to review later Care Teams Black Ash Worker Relationship Specialty Start Date End Date Raul Mendoza MD [address] [place] [address] PCP - General 07/15/24 Raffaele Regan [address] [place] [address] General Surgery Surgery - General 04/27/12 Eloy Carroll MD [address] [place] [address] Sports Medicine 04/27/12 Jordan Rodriguez MD [address] [place] [address] Orthopedics Surgery - Orthopedic 04/05/13 Carly Metzger RN [address] [place] [address] Nurse Navigator - Oncology Registered Nurse 07/30/21
--- OUTSIDE RECORDS SUMMARY | 2024-11-28 20:51 | XMS_ITS | Clinical Summary ---
Author Organization [facility] Address [address] [place] [address] Care Team Providers Care Stockroom Selector Name Role Phone Raul Mendoza MD Primary Care Provider [phone] Source Comments You are receiving this document as you are listed as the primary care provider,follow-up provider, or the patient has been referred to you for consultation.This is in compliance with the Medicare and[facility] EHR Incentive Program,which states Providers who transition their patient to another setting of careor provider of care or refers their patient to another provider of care shouldprovide summary care record for each transition of care or referral. [facility] Allergies No known active allergies Medications Glucosamine [...] topic Insurance MEDICARE MEDICARE SUPPLEMENT Care Teams Stockroom Selector Relationship Specialty Start Date End Date Raul Mendoza MD [address] [place] [address] [facility] - General 04/11/13
[2024-11-28 21:09] LABS: PCR FLU A Negative PCR FLU A (Negative); PCR FLU B Negative PCR FLU B (Negative); PCR RSV Negative PCR RSV (Negative); SARS PCR* Negative SARS-CoV-2 (Negative)
[2024-11-28 21:15] VITALS: O2SAT 94
== END 2024-11-28 21:23 | disposition home or self-care (01) ==
PROVIDERS: Emergency Provider Emergency Medicine Emergency Medical Services; PCP Family Medicine
DX: J22 Unspecified acute lower respiratory infection (principal)
CPT/HCPCS: 71046; 87631; 99283; 99284